=== PATIENT | female | born 1975 | race Caucasian/White ===

== ENCOUNTER 2018-02-25 19:06 | Emergency (ER) | payer OTHER ==
[~2018-02-25] VITALS: Ht 160 cm; Wt 76.7 kg
[2018-02-25 19:13] VITALS: BP_SYST 115
[2018-02-25] MEDS ORDERED: KETOROLAC TROMETHAMINE 60 MG/2 ML VIAL IM ONE (20:00)
[2018-02-25] MEDS ORDERED: traMADol HCL HCL 50 MG TABLET (ULTRAM) PO ONE (20:45)
[2018-02-25 21:05] VITALS: BP_SYST 124
== END 2018-02-25 21:05 | disposition home or self-care (01) ==
LOC: SED 19:06
DX: K59.00 Constipation, unspecified (principal); E11.9 Type 2 diabetes mellitus without complications; F17.210 Nicotine dependence, cigarettes, uncomplicated; Z88.0 Allergy status to penicillin; Z86.73 Personal history of transient ischemic attack (TIA), and cerebral infarction without residual deficits; Z85.43 Personal history of malignant neoplasm of ovary; Z91.041 Radiographic dye allergy status; Z91.013 Allergy to seafood
CPT/HCPCS: 74021; 99284; J1885